=== PATIENT | female | born 1995 | race Caucasian/White ===

== ENCOUNTER 2020-12-30 11:15 | Outpatient (CLI) | payer BC, SELFPAY ==
--- NOTE | 2020-12-30 11:24 | XR_ITS ---
WS: [id number] Cervical spine, 3 views, 12/30/2020 Clinical Data: NECK PAIN Comparison: Cervical spine, 07/15/2015. Findings: No compression fractures are seen. The disc heights are normal. There is no prevertebral so ft tissue swelling. The odontoid is unremarkable. The soft tissues of the neck and the lung apices ar e normal. XR/XR cervical spine 3V* [id number] Impression: Negative cervical spine.
== END 2020-12-30 11:16 | disposition home or self-care (01) ==
LOC: RADWPI 11:23
PROVIDERS: PCP Family Medicine; Visit Provider Chiropractor
DX: M54.2 Cervicalgia (principal)
CPT/HCPCS: 72040

== ENCOUNTER → 2022-09-26 08:26 | Outpatient (BNVA) | payer OTHER, SELFPAY | PROVIDERS: PCP Family Medicine; Visit Provider Family Medicine Adult Medicine | DX: R39.9 Unspecified symptoms and signs involving the genitourinary system (principal) | CPT/HCPCS: 81000 ==

== ENCOUNTER → 2022-10-18 08:40 | Outpatient (BNVA) | payer OTHER, SELFPAY | PROVIDERS: PCP Family Medicine; Visit Provider Nurse Practitioner Women's Health | DX: Z32.00 Encounter for pregnancy test, result unknown (principal); Z34.90 Encounter for supervision of normal pregnancy, unspecified, unspecified trimester; R31.9 Hematuria, unspecified | CPT/HCPCS: 81025; 84315; 87077; 87086; 87184 ==

== ENCOUNTER → 2022-12-04 15:09 | Outpatient (BNVA) | payer OTHER, SELFPAY | PROVIDERS: PCP Family Medicine; Visit Provider Obstetrics & Gynecology | DX: O99.351 Diseases of the nervous system complicating pregnancy, first trimester (principal); G40.909 Epilepsy, unspecified, not intractable, without status epilepticus; Z3A.00 Weeks of gestation of pregnancy not specified | CPT/HCPCS: 80307; 84315; 84443; 85027; 86592; 86762; 86803; 86850; 86900; 87340; 87491; 87591; 87661; 87806; 88175 ==

== ENCOUNTER → 2023-03-21 15:00 | Outpatient (BNVA) | payer OTHER, SELFPAY | PROVIDERS: PCP Family Medicine; Visit Provider Obstetrics & Gynecology | DX: O09.899 Supervision of other high risk pregnancies, unspecified trimester (principal); R82.90 Unspecified abnormal findings in urine; Z3A.28 28 weeks gestation of pregnancy | CPT/HCPCS: 82950; 84315; 85025; 87077; 87086; 87184 ==

== ENCOUNTER → 2023-04-04 13:15 | Outpatient (BNVA) | payer OTHER, SELFPAY | PROVIDERS: PCP Family Medicine; Visit Provider Obstetrics & Gynecology | DX: O09.899 Supervision of other high risk pregnancies, unspecified trimester (principal); Z3A.30 30 weeks gestation of pregnancy | CPT/HCPCS: 84315; 87086 ==

== ENCOUNTER 2023-04-11 12:45 | Outpatient (CLI) | payer OTHER, SELFPAY ==
[2023-04-14 13:44] LABS: Levetiracetam Immunoassy 14.3 mcg/mL (6.0-46.0)
== END 2023-04-11 12:46 | disposition home or self-care (01) ==
PROVIDERS: PCP Family Medicine; Visit Provider Psychiatry & Neurology Neurology
DX: G40.309 Generalized idiopathic epilepsy and epileptic syndromes, not intractable, without status epilepticus (principal)
CPT/HCPCS: 36415; 80177

== ENCOUNTER → 2023-05-02 13:36 | Outpatient (BNVA) | payer OTHER, SELFPAY | PROVIDERS: PCP Family Medicine; Visit Provider Obstetrics & Gynecology | DX: O09.899 Supervision of other high risk pregnancies, unspecified trimester (principal); Z3A.34 34 weeks gestation of pregnancy | CPT/HCPCS: 84315; 85025 ==

== ENCOUNTER → 2023-05-16 13:20 | Outpatient (BNVA) | payer OTHER, SELFPAY | PROVIDERS: PCP Family Medicine; Visit Provider Obstetrics & Gynecology | DX: O09.899 Supervision of other high risk pregnancies, unspecified trimester (principal); Z3A.36 36 weeks gestation of pregnancy | CPT/HCPCS: 84315; 87081 ==

== ENCOUNTER → 2023-05-23 13:08 | Outpatient (BNVA) | payer OTHER, SELFPAY | PROVIDERS: PCP Family Medicine; Visit Provider Obstetrics & Gynecology | DX: O09.899 Supervision of other high risk pregnancies, unspecified trimester (principal); Z3A.37 37 weeks gestation of pregnancy | CPT/HCPCS: 84315; 87086 ==

== ENCOUNTER 2023-06-13 09:57 | Outpatient (CLI) | payer OTHER, SELFPAY ==
[2023-06-13 09:57] VITALS: RESP 17; BMI 31.1
[2023-06-13 10:11] VITALS: BP 144/72; PULSE 83
[2023-06-13 10:26] VITALS: BP 120/72; PULSE 83
[2023-06-13 10:39] VITALS: BP 115/71; PULSE 88
[2023-06-13 10:58] VITALS: BP 115/71; PULSE 88
== END 2023-06-13 10:58 | disposition home or self-care (01) ==
LOC: OPOB 10:04 → OBGYN 10:04
PROVIDERS: PCP Family Medicine; Visit Provider Obstetrics & Gynecology
DX: O48.0 Post-term pregnancy (principal); Z3A.00 Weeks of gestation of pregnancy not specified
CPT/HCPCS: 59025; 84315; 99211

== ENCOUNTER 2023-06-17 13:06 | Outpatient (CLI) | payer OTHER, SELFPAY ==
[2023-06-17 13:13] VITALS: BP 115/66; PULSE 88
--- NOTE | 2023-06-17 13:21 | USR_ITS ---
PROCEDURE INFORMATION: Exam: US Biophysical Profile Without Non-Stress Test Exam date and time: 06/17/2023 2:13 PM Age: 27 years old Clinical indication: Condition or disease; Other: Post dates; TECHNIQUE: Imaging protocol: US biophysical profile without non-stress testing. COMPARISON: US OB >= 14 weeks fetus [facility] 01/24/2023 2:26 PM FINDINGS: Gestation: Single living intrauterine . heart rate: 150 bpm Placenta: Anterior grade 3 placenta, no previa. No abruption. BIOPHYSICAL PROFILE: breathing movement (BPP): 2 out of 2. body movement (BPP): 2 out of 2. tone (BPP): 2 out of 2. Amniotic fluid (BPP): 2 out of 2. MATERNAL ANATOMY: Cervix: Cervical length measures 3.16 cm. Closed. US/US OB BPP wo NST [id number] IMPRESSION: 1. Single living intrauterine . 2. Normal biophysical profile score with 8 out of 8 available points.
[2023-06-17 13:28] VITALS: BP 110/62; PULSE 88
[2023-06-17 13:43] VITALS: BP 102/59; PULSE 88
[2023-06-17 13:58] VITALS: BP 115/70; PULSE 88
[2023-06-17 14:13] VITALS: BP 115/69; PULSE 86
[2023-06-17 14:52] VITALS: BP 115/69; PULSE 86
== END 2023-06-17 15:00 | disposition home or self-care (01) ==
LOC: OPOB 13:06 → OBGYN 13:08
PROVIDERS: PCP Family Medicine; Visit Provider Obstetrics & Gynecology
DX: O48.0 Post-term pregnancy (principal); Z3A.00 Weeks of gestation of pregnancy not specified
CPT/HCPCS: 59025; 76819; 99211

== ENCOUNTER 2023-06-20 19:05 | Inpatient (IN) | payer OTHER, SELFPAY ==
[2023-06-20] VITALS (12 sets, daily range): BP systolic 114–139; BP diastolic 64–88; PULSE 92–108; RESP 16; TEMP 37.1; BMI 31.5
[2023-06-20 20:34] LABS: Basophils % 0.3 %; Eosinophils # 0.1 10^3/uL (0.0-0.8); Eosinophils % 0.6 %; Hematocrit 36.1 % (36-47); Lymphocytes # 2.3 10^3/uL (0.8-4.8); Lymphocytes % 19.2 %; Mean Corpuscular HGB Conc 34.9 g/dL (30-55); Mean Corpuscular Hemoglobin 31.2 pg (27-33); Mean Corpuscular Volume 89.4 fl (85-98); Mean Platelet Volume 11.7 fL (7.4-10.4); Monocytes # 0.8 10^3/uL (0.2-0.9); Monocytes % 6.2 %; Neutrophils # 8.85 10^3/uL (1.8-7.7); Neutrophils % 72.6 %; Nucleated Red Blood Cells % 0 %; Platelet Count 188 10^3/cmm (157-399); Red Blood Count 4.04 10^6/uL (3.85-5.65); Red Cell Distribution Width 13.3 % (12.1-15.1); White Blood Count 12.19 10^3/uL (3.29-11.43)
--- NOTE | 2023-06-20 20:35 | P.HP_ITS ---
Providers/Chief Complaint Admitting Physician: Ulises Johnson MD Primary ORACLE ETL DEVELOPER: Ulises Johnson MD Primary Care Provider: Cheng Uribe Chief Complaint: post date induction HPI ORACLE ETL DEVELOPER History of Present Illness Tosin Guadarrama is a 27 year old female G1 with EDC June 13, 2023 at 41 w 0 d no complications admitted for labor induction due to post-dates Present Details : 1 Para: 0 Labs Rubella: Immune RPR: Results in [employer] GBS: Negative Medications/Allergies Home Medications Medication Instructions Recorded Confirmed Last Taken Type levetiracetam 500 mg 2,000 mg PO DAILY 09/26/22 06/13/23 Unknown History tablet,extended release 24 hr PNV-iron 29 mg-folic acid 1 pkg PO 10/18/22 06/13/23 Unknown History mf-gcwwi-8-dha 200 mg oral combo pack folic acid 0.8 mg capsule 0.8 mg PO DAILY 12/04/22 06/13/23 Unknown History Allergies Allergy/AdvReac Type Severity Reaction Status Date / Time Penicillins Allergy Unknown Verified 06/13/23 08:52 PFSH ORACLE ETL DEVELOPER PFSH: Medical History Dysuria Seizure disorder Family History Denies family history of Colon cancer Pancreatic cancer Ovarian cancer Thyroid cancer Diabetes Breast cancer Cancer Hypertension Uterine cancer Stroke History History History 1 Term 0 0 Miscarriages/Ectopic 0 Living Children 0 Care DARBY Calculator Estimated Delivery Date Method Current WG Current Estimate 06/13/23 LMP (Certain) 41w 1d Vitals/I&O/Wt Last Vital Signs Temp 97.2 F L 06/21/23 06:24 Pulse 82 06/21/23 07:10 Resp 16 06/21/23 02:38 BP 117/70 06/21/23 07:10 Pulse Ox 99 06/21/23 06:13 O2 Del Method Room Air 06/21/23 03:29 Weight last 48 hrs Weight 178 lb Physical Exam Const: COMMON NORMALS: no acute distress, average body habitus, patient oriented x3, healthy appearing and alert Resp: COMMON NORMALS: normal respiratory effort, No retractions and clear to auscultation bilaterally Cardio: COMMON NORMALS: regular rate and regular rhythm GI: COMMON NORMALS: Normal to inspection, nondistended, normoactive bowel sounds present, Soft to palpation and non-tender : OTHER: Cervix: FT / 25% / -4 / posterior / cephalic Extremity: COMMON NORMALS: normal to inspection and no pedal edema Urinary Catheter Management: Bustillos: Cath Placed During This Visit: yes Reason for Continuing Indwelling Catheter: Accurate Measurement of Urinary Output in Critically Ill Patients Urinary Catheter Date of Insertion: 06/21/23 Urinary Catheter Time of Insertion: 06:15 Data 06/20/23 20:08 Other Labs: GBS negative A&P Assessment and plan (1) Post-dates : 41 w 0 d admit for labor induction plan cytotec 25 ug intravaginal Attestations Medical Necessity Statement*: patient at 41 weeks, admitted for labor induction Coding Level of Care Code Acute Code for Chg Fwd Diagnoses Post-dates O48.0 Time Spent (min) 30
[2023-06-20] MEDS: miSOPROStol 100 mcg tablet 25 MCG VAGINAL (21:03)
[2023-06-21] VITALS (90 sets, daily range): BP systolic 100–152; BP diastolic 55–99; PULSE 76–121; RESP 16–97; TEMP 36–36.8; O2SAT 92–99
[2023-06-21] MEDS: miSOPROStol 100 mcg tablet 25 MCG VAGINAL (01:19)
[2023-06-21] MEDS: fentaNYL 50 mcg/mL INJ 2mL IVP (02:38)
[2023-06-21] MEDS: acetaminophen 325 mg Tablet 650 MG PO (02:41)
[2023-06-21] MEDS: lactated ringers 1,000 ML 999 ML IV (03:31)
[2023-06-21] MEDS: dextrose 5%-lactated ringers 1,000 ML 125 ML IV ×2 (05:10→08:26)
--- NOTE | 2023-06-21 05:39 | ANES.PREANE2 ---
Pre-Anesthetic Assessment Height/Weight: Height 1.6 m Weight 80.739 kg Temp Pulse Resp BP Pulse Ox O2 Del Method 98.8 F 108 H 16 128/64 98 Room Air 06/20/23 20:15 06/21/23 05:33 06/21/23 02:38 06/21/23 05:26 06/21/23 05:33 06/21/23 03:29 Preop Diagnosis: Labor pain epidural Familial anesthetic complications: none Was Beta Malathi taken within 24 hours: N/A Was Clonidine taken within 24 hours: N/A Social No alcohol and No tobacco Exam alert, oriented x 3, clear to auscultation bilaterally and regular rate & rhythm Airway Submandibular: within normal limits Cervical ROM: within normal limits Mallampati: Class II Dentition: full Pulmonary None reported CV/HEM None reported None reported Hepatic None reported GI Gastroesophageal Reflux Disease Metabolic None reported Musc/skel None reported Neuropsych Seizure Anesthetic Plan ASA status: 2 Anesthesia: Regional (specify below) Risk of > 500 ml blood loss (7ml/kg in children): No Medications/Allergies Home Medications Medication Instructions Recorded Confirmed Last Taken Type levetiracetam 500 mg 2,000 mg PO DAILY 09/26/22 06/13/23 Unknown History tablet,extended release 24 hr PNV-iron 29 mg-folic acid 1 pkg PO 10/18/22 06/13/23 Unknown History va-ampzq-7-dha 200 mg oral combo pack folic acid 0.8 mg capsule 0.8 mg PO DAILY 12/04/22 06/13/23 Unknown History Allergies Allergy/AdvReac Type Severity Reaction Status Date / Time Penicillins Allergy Unknown Verified 06/13/23 08:52 Current Medications Generic Name Dose Route Start Last Admin Trade Name Freq PRN Reason Stop Dose Admin Acetaminophen 650 mg 06/20/23 20:15 06/21/23 02:41 Acetaminophen 325 Mg Tablet PO 650 mg Q6H PRN Administration Mild pain or temp > 100.4 Fentanyl 25 - 100 mcg 06/20/23 20:15 06/21/23 02:38 Fentanyl 50 Mcg/Ml Inj 2ml IVP 25 mcg Q1H PRN Administration SEVERE PAIN Dextrose/Lactated Ringer's 1,000 mls @ 125 mls/hr 06/20/23 20:15 06/21/23 05:10 Dextrose 5%-Lactated Ringers IV 125 mls/hr .Q8H MARIELENA Administration Lactated Ringer's 1,000 mls @ 999 mls/hr 06/21/23 03:18 06/21/23 03:31 Lactated Ringers IV 999 mls/hr .Q1H1M PRN Administration See label comments PFSH Anesthesia Medical History Dysuria Seizure disorder Family History Denies family history of Colon cancer Pancreatic cancer Ovarian cancer Thyroid cancer Diabetes Breast cancer Cancer Hypertension Uterine cancer Stroke Female Reproductive History : 1 Data Anesthesia 06/20/23 20:08 Short CBC 06/20/23 Range/Units 20:08 WBC 12.19 H (3.29-11.43) 10^3/uL Hgb 12.60 (11.27-16.99) g/dL Hct 36.1 (36-47) % MCV 89.4 (85-98) fl Plt Count 188 (157-399) 10^3/cmm Neut % (Auto) 72.6 % Neut # (Auto) 8.85 H (1.8-7.7) 10^3/uL Cardiac Studies: No Data to Display
--- NOTE | 2023-06-21 06:05 | P.ANES_ITS ---
Anesthesia Procedures Procedure/Date: 06/21/23 epidural Procedure Narrative: epidural complete, bolus given, epidural pump initiated with AIRCRAFT ENGINE MECHANIC OVERHAUL education given, vitals taken during procedure and satisfactory throughout, patient admits to decrease pain, report of procedure to OB RN Epidural: Time Out Performed: Yes Consents Signed: Procedure Consent Consent: requested by attending/covering physician, from patient, risks and benefits reviewed and patient agrees to proceed Lumbar Level: L3-L4 Epidural position: sitting Epidural procedure: sterile prep of area, 1% lidocaine to numb the area (3 mL), 18 g needle, negative for paresthesia passed, neg for paresthesia, test dose given, 1.5% xylocaine 1:200k epi (5 mL), 0.2% Ropivacaine bolus ml (5 mL), placed PCEA, no systemic response, sterile dressing applied, L.U.D. no apparent complications and 0.2% Ropiavacaine @ mls/hr (13 mL/hr)
[2023-06-21] MEDS: ROPivacaine syringe 100 MG/50 ML SYRINGE 13 MG EPIDURAL ×2 (06:22→08:25)
--- NOTE | 2023-06-21 07:23 | PM.OBGYPN ---
SHIP YARD ELECTRICAL PERSON Subjective Subjective: Interval history: patient comfortable with epidural fetus reassuring received cytotec 25 ug intravaginal x two doses UCs 3-4 q 10 minutes Cx: 5-6 cm progressing well continue expectant management Labor: Station: -2 Amniotic Membrane Status: Ruptured Monitor Mode: External Contraction Pattern: Regular Vitals/I&O/Wt Last Vital Signs Temp 97.2 F L 06/21/23 06:24 Pulse 82 06/21/23 07:10 Resp 16 06/21/23 02:38 BP 117/70 06/21/23 07:10 Pulse Ox 99 06/21/23 06:13 O2 Del Method Room Air 06/21/23 03:29 Weight last 48 hrs Weight 178 lb Physical Exam Urinary Catheter Management: Bustillos: Cath Placed During This Visit: yes Reason for Continuing Indwelling Catheter: Accurate Measurement of Urinary Output in Critically Ill Patients Urinary Catheter Date of Insertion: 06/21/23 Urinary Catheter Time of Insertion: 06:15 Data 06/20/23 20:08 A&P Assessment and plan (1) Post-dates : patient progressing well continue expectant management Attestations Medical Necessity Statement*: patient at 41 weeks, admitted for labor induction Coding Level of Care Code Acute Code for Chg Fwd Diagnoses Post-dates O48.0 Time Spent (min) 15
[2023-06-21] MEDS: ondansetron 2 mg/ML SDV 2 mL 4 MG IVP (09:24)
--- NOTE | 2023-06-21 09:30 | PM.OBGYPN ---
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 MARKETING Subjective Subjective: Interval history: Fetus reassuring Comfortable with epidural Cervix: anterior lip / -1 station Labor: Station: +3 Amniotic Membrane Status: Ruptured Monitor Mode: External Contraction Pattern: Regular Vitals/I&O/Wt Last Vital Signs Temp 97.6 F 06/22/23 15:40 Pulse 93 06/22/23 15:40 Resp 16 06/22/23 15:40 BP 107/74 06/22/23 15:40 Pulse Ox 97 06/22/23 15:40 O2 Del Method Room Air 06/22/23 15:40 Physical Exam Urinary Catheter Management: Bustillos: Cath Placed During This Visit: yes, but has since been removed by the nurse Reason for Continuing Indwelling Catheter: Decision to DC Catheter Urinary Catheter Date of Insertion: 06/21/23 Urinary Catheter Time of Insertion: 06:15 Date Urinary Catheter Removed: 06/21/23 Time Urinary Catheter Discontinued: 10:30 Data 06/21/23 23:35 A&P Assessment and plan (1) Encounter for induction of labor: 41 w 1 d undergoing labor induction normal labor progress Attestations Medical Necessity Statement*: patient at 41 w 1 d, admitted for labor induction Coding Level of Care Code Acute Code for Chg Fwd Diagnoses Encounter for induction of labor Z34.90 Time Spent (min) 10
--- NOTE | 2023-06-21 11:10 | PM.DELIVERY ---
Delivery Note: Date of delivery: June 23, 2023 Pre-delivery diagnoses: 41 weeks labor induction Post-delivery diagnoses: same, delivered Procedure: Vaginal delivery Op report anesthesia: Epidural Delivering Physician: Ulises Johnson MD Estimated blood loss (mL): 300 Findings: vigorous female infant 2-3+ meconium at delivery normal placenta and cord cord gases and blood obtained no episiotomy second-degree perineal laceration repaired EBL: 300 cc no complications Pre-Delivery Course: normal labor course Delivery: vaginal delivery Post-Delivery Status: good History History History 1 Term 0 0 Miscarriages/Ectopic 0 Living Children 0 A&P Assessment and plan (1) Encounter for induction of labor: (2) Vaginal delivery: care Coding Level of Care Code Acute Code for Chg Fwd Diagnoses Encounter for induction of labor Z34.90 Vaginal delivery O80 Time Spent (min) 60
[2023-06-21] MEDS: benzocaine-menthol 78 gm Canister 1 SPRAY TOPICAL (14:27)
[2023-06-21] MEDS: ibuprofen 800 mg tablet PO ×2 (14:28→21:32)
[2023-06-21] MEDS: lanolin oint 7 gm 1 APPLIC TOPICAL (14:28)
[2023-06-21] MEDS: docusate sodium 100 mg Capsule PO (17:26)
[2023-06-22 00:06] LABS: Hematocrit 33.3 % (36-47); Mean Corpuscular HGB Conc 34.8 g/dL (30-55); Mean Corpuscular Hemoglobin 31.6 pg (27-33); Mean Corpuscular Volume 90.7 fl (85-98); Mean Platelet Volume 11.5 fL (7.4-10.4); Platelet Count 157 10^3/cmm (157-399); Red Blood Count 3.67 10^6/uL (3.85-5.65); Red Cell Distribution Width 13.5 % (12.1-15.1)
[2023-06-22 05:10] VITALS: BP 108/74; PULSE 79; RESP 16; TEMP 36.8
--- NOTE | 2023-06-22 08:38 | ANE.PACU2 ---
Inpatient post-anesthesia follow up: Airway intact: Yes Vital signs: Temperature 97.6 F Pulse Rate 93 Respiratory Rate 16 Blood Pressure 107/74 Pulse Oximetry 97 Oxygen Delivery Me thod Room Air Oxygen Flow Rate Fraction of Inspir ed Oxygen Hydration adequate: Yes Nausea and vomiting: No Pain level: 1 Mental status: Baseline
[2023-06-22] MEDS: docusate sodium 100 mg Capsule PO (09:09)
[2023-06-22] MEDS: ibuprofen 800 mg tablet PO ×2 (09:09→15:23)
[2023-06-22] MEDS: prenatal vitamin Capsule 1 CAP PO (09:09)
[2023-06-22 09:14] VITALS: BP 107/70; PULSE 103; RESP 15; O2SAT 96
--- NOTE | 2023-06-22 13:10 | P.PN_ITS ---
EMERGENCY VEHICLE DISPATCHER Subjective Subjective: Interval history: no c/o no bleeding, pain eating, voiding, ambulating well caring for without any problems Labor: Station: +3 Amniotic Membrane Status: Ruptured Monitor Mode: External Contraction Pattern: Regular Vitals/I&O/Wt Last Vital Signs Temp 97.6 F 06/22/23 15:40 Pulse 93 06/22/23 15:40 Resp 16 06/22/23 15:40 BP 107/74 06/22/23 15:40 Pulse Ox 97 06/22/23 15:40 O2 Del Method Room Air 06/22/23 15:40 Physical Exam Const: COMMON NORMALS: no acute distress, patient oriented x3 and alert Resp: COMMON NORMALS: normal respiratory effort and clear to auscultation bilaterally AUSCULTATION: clear to auscultation bilaterally Cardio: COMMON NORMALS: regular rate and regular rhythm RATE: regular rate RHYTHM: regular rhythm GI: COMMON NORMALS: Normal to inspection, nondistended, normoactive bowel sounds present, Soft to palpation and non-tender PALPATION: Yes Soft to palpation OTHER: fundus firm Neuro: COMMON NORMALS: patient oriented x3 SENSORIUM/ORIENTATION: Yes alert Urinary Catheter Management: Bustillos: Cath Placed During This Visit: yes, but has since been removed by the nurse Reason for Continuing Indwelling Catheter: Decision to DC Catheter Urinary Catheter Date of Insertion: 06/21/23 Urinary Catheter Time of Insertion: 06:15 Date Urinary Catheter Removed: 06/21/23 Time Urinary Catheter Discontinued: 10:30 Data 06/21/23 23:35 A&P Assessment and plan (1) Vaginal delivery: doing well discharge home today instructions and precautions given call/return if fever, chills, headache, blurry vision, nausea, vomiting, abdominal pain; vaginal bleeding or discharge; shortness of breath, chest pain, leg pains or swelling; inability to void, perineal pain or swelling; feelings of depression or mood changes; thoughts of suicide or harming others; inability to care for baby. f/u in 6 weeks or PRN Attestations Medical Necessity Statement*: patient s/p vaginal delivery, day 1 Coding Level of Care Code Acute Code for Chg Fwd Diagnoses Vaginal delivery O80 Time Spent (min) 30
--- NOTE | 2023-06-22 14:05 | PM.OBGYDC ---
Discharge Providers CURRICULUM ASSISTANT PRINCIPAL Date of Admission: 06/20/23 19:05 Date of Discharge: 06/22/23 Attending Provider at Admission: Ulises Johnson MD Attending Provider at Discharge: Ulises Johnson MD Primary CURRICULUM ASSISTANT PRINCIPAL: Ulises Johnson MD Primary Care Provider: Cheng Uribe Diagnoses at Discharge Discharge Diagnosis (1) Vaginal delivery: Details from hospital stay: patient s/p patient did well without any complications Status: Acute Reason for Visit Reason for Visit: post date induction Hospital Course Hospital Course patient was admitted for induction of labor at 41 weeks progressed to complete vaginal delivery without any complications routine care Information Peripartum Data: Infant Delivery Method: Vaginal Physical Exam Const: COMMON NORMALS: no acute distress, patient oriented x3 and alert Resp: COMMON NORMALS: normal respiratory effort and clear to auscultation bilaterally AUSCULTATION: clear to auscultation bilaterally Cardio: COMMON NORMALS: regular rate and regular rhythm RATE: regular rate RHYTHM: regular rhythm GI: COMMON NORMALS: Normal to inspection, nondistended, normoactive bowel sounds present, Soft to palpation and non-tender PALPATION: Yes Soft to palpation Extremity: COMMON NORMALS: normal to inspection, no clubbing, cyanosis or edema and no calf tenderness Neuro: COMMON NORMALS: patient oriented x3 SENSORIUM/ORIENTATION: Yes alert Urinary Catheter Management: Bustillos: Cath Placed During This Visit: yes, but has since been removed by the nurse Reason for Continuing Indwelling Catheter: Decision to DC Catheter Urinary Catheter Date of Insertion: 06/21/23 Urinary Catheter Time of Insertion: 06:15 Date Urinary Catheter Removed: 06/21/23 Time Urinary Catheter Discontinued: 10:30 History History History 1 Term 0 0 Miscarriages/Ectopic 0 Living Children 0 Discharge Data Studies Completed and Pending Laboratory Results WBC 17.00 10^3/uL (3.29-11.43) H 06/21/23 23:35 RBC 3.67 10^6/uL (3.85-5.65) L 06/21/23 23:35 Hgb 11.60 g/dL (11.27-16.99) 06/21/23 23:35 Hct 33.3 % (36-47) L 06/21/23 23:35 MCV 90.7 fl (85-98) 06/21/23 23:35 MCH 31.6 pg (27-33) 06/21/23 23:35 MCHC 34.8 g/dL (30-55) 06/21/23 23:35 RDW 13.5 % (12.1-15.1) 06/21/23 23:35 Plt Count 157 10^3/cmm (157-399) 06/21/23 23:35 MPV 11.5 fL (7.4-10.4) H 06/21/23 23:35 Neut % (Auto) 72.6 % 06/20/23 20:08 Lymph % (Auto) 19.2 % 06/20/23 20:08 [place] % (Auto) 6.2 % 06/20/23 20:08 Eos % (Auto) 0.6 % 06/20/23 20:08 Baso % (Auto) 0.3 % 06/20/23 20:08 Neut # (Auto) 8.85 10^3/uL (1.8-7.7) H 06/20/23 20:08 Lymph # (Auto) 2.3 10^3/uL (0.8-4.8) 06/20/23 20:08 [place] # (Auto) 0.8 10^3/uL (0.2-0.9) 06/20/23 20:08 Eos # (Auto) 0.1 10^3/uL (0.0-0.8) 06/20/23 20:08 Baso # (Auto) 0.0 10^3/uL (0.0-0.1) 06/20/23 20:08 Nucleated RBC % (auto) 0 % 06/20/23 20:08 Nucleated RBCs # 0.0 /100WBC 06/20/23 20:08 Procedures Performed vaginal delivery second-degree perineal laceration repaired Vitals Last Vital Signs Temp 97.6 F 06/22/23 15:40 Pulse 93 06/22/23 15:40 Resp 16 06/22/23 15:40 BP 107/74 06/22/23 15:40 Pulse Ox 97 06/22/23 15:40 O2 Del Method Room Air 06/22/23 15:40 Discharge Plan Discharge Patient Disposition: Home Condition: Stable Prescriptions: Continued levetiracetam 500 mg tablet extended release 24 hr 2,000 mg PO DAILY PNV cmb 21-texp-VD-omega-3-dha [id number] mg combo pack PO folic acid 0.8 mg capsule 0.8 mg PO DAILY Discharge Orders: Discharge Order (Routine); Ordered 06/22/23 Ordered By: Ulises Johnson Referrals: Ulises Johnson MD [Physician] - 08/01/23 8:45 am (Patient to see Dr. Johnson for 6 week follow up on August 01 @ 8:45) Discharge Diet: Usual diet Discharge Activity: Increase activity as tolerated Patient Instructions: Depression (DC), Preeclampsia and Eclampsia After Delivery (GEN), Hemorrhage (DC), OB Discharge Report, OB Food/Drug Interaction Guide, OB Care at Home, Opioid Safety, OB Home Care, Abnormal Bleeding Activity Restrictions/Additional Instructions: call Dr. Johnson at [phone] if problems Discharge Attestations CURRICULUM ASSISTANT PRINCIPAL Time Spent in Discharge Care*: less than 30 min Coding Level of Care Code Acute Code for Chg Fwd Diagnoses Vaginal delivery O80 Time Spent (min) 20
[2023-06-22 15:40] VITALS: BP 107/74; PULSE 93; RESP 16; TEMP 36.4; O2SAT 97
== END 2023-06-22 16:00 | disposition home or self-care (01) | DRG 807 ==
PROVIDERS: Admitting Provider Obstetrics & Gynecology; PCP Family Medicine; Visit Provider Obstetrics & Gynecology
DX: O48.0 Post-term pregnancy (principal); Z37.0 Single live birth; Z3A.41 41 weeks gestation of pregnancy; O70.1 Second degree perineal laceration during delivery; O77.0 Labor and delivery complicated by meconium in amniotic fluid
CPT/HCPCS: 36415; 51702; 59025; 59409; 85025; 85027; 96374; 98960; 99211; G0379; J2405; J2795; J3010; J7120; J7121

== ENCOUNTER → 2024-04-16 15:22 | Outpatient (BNVA) | payer OTHER, SELFPAY | PROVIDERS: PCP Family Medicine; Visit Provider Obstetrics & Gynecology | DX: Z01.419 Encounter for gynecological examination (general) (routine) without abnormal findings (principal) | CPT/HCPCS: 87624 ==

== ENCOUNTER → 2024-12-16 07:30 | Outpatient (BNVA) | payer OTHER, SELFPAY | PROVIDERS: PCP Family Medicine; Visit Provider Nurse Practitioner Women's Health | DX: Z32.01 Encounter for pregnancy test, result positive (principal) | CPT/HCPCS: 81025; 84702; 86850; 86900 ==

== ENCOUNTER → 2024-12-25 15:21 | Outpatient (BNVA) | payer OTHER, SELFPAY | PROVIDERS: PCP Family Medicine; Visit Provider Nurse Practitioner Women's Health | DX: Z34.91 Encounter for supervision of normal pregnancy, unspecified, first trimester (principal) | CPT/HCPCS: 76801 ==

== ENCOUNTER → 2025-01-14 14:33 | Outpatient (BNVA) | payer OTHER, SELFPAY | PROVIDERS: PCP Family Medicine; Visit Provider Nurse Practitioner Women's Health | DX: O09.899 Supervision of other high risk pregnancies, unspecified trimester (principal) | CPT/HCPCS: 80307; 84443; 85025; 86592; 86762; 86803; 86850; 86900; 87086; 87340; 87491; 87591; 87661; 87806 ==

== ENCOUNTER → 2025-01-21 15:37 | Outpatient (BNVA) | payer OTHER, SELFPAY | PROVIDERS: PCP Family Medicine; Visit Provider Nurse Practitioner Women's Health | DX: Z34.90 Encounter for supervision of normal pregnancy, unspecified, unspecified trimester (principal) | CPT/HCPCS: 76801 ==

== ENCOUNTER → 2025-02-16 10:25 | Outpatient (BNVA) | payer OTHER, SELFPAY | PROVIDERS: PCP Family Medicine; Visit Provider Obstetrics & Gynecology | DX: Z34.90 Encounter for supervision of normal pregnancy, unspecified, unspecified trimester (principal) | CPT/HCPCS: 84315 ==

== ENCOUNTER → 2025-02-23 13:56 | Outpatient (BNVA) | payer OTHER, SELFPAY | PROVIDERS: PCP Family Medicine; Visit Provider Nurse Practitioner Women's Health | DX: Z34.90 Encounter for supervision of normal pregnancy, unspecified, unspecified trimester (principal); G40.909 Epilepsy, unspecified, not intractable, without status epilepticus | CPT/HCPCS: 84315 ==

== ENCOUNTER → 2025-03-23 14:32 | Outpatient (BNVA) | payer OTHER, SELFPAY | PROVIDERS: PCP Family Medicine; Visit Provider Obstetrics & Gynecology | DX: Z36.9 Encounter for antenatal screening, unspecified (principal) | CPT/HCPCS: 76805 ==

== ENCOUNTER → 2025-03-30 15:42 | Outpatient (BNVA) | payer OTHER, SELFPAY | PROVIDERS: PCP Family Medicine; Visit Provider Obstetrics & Gynecology | DX: Z34.90 Encounter for supervision of normal pregnancy, unspecified, unspecified trimester (principal) | CPT/HCPCS: 84315 ==

== ENCOUNTER → 2025-04-20 14:10 | Outpatient (BNVA) | payer SELFPAY | PROVIDERS: PCP Family Medicine; Visit Provider Nurse Practitioner Women's Health | DX: Z34.90 Encounter for supervision of normal pregnancy, unspecified, unspecified trimester (principal) | CPT/HCPCS: 84315; 87077; 87086; 87184 ==

== ENCOUNTER → 2025-05-18 13:57 | Outpatient (BNVA) | payer BC, SELFPAY | PROVIDERS: PCP Family Medicine; Visit Provider Obstetrics & Gynecology | DX: Z34.90 Encounter for supervision of normal pregnancy, unspecified, unspecified trimester (principal) | CPT/HCPCS: 82950; 84315; 85025 ==

== ENCOUNTER → 2025-06-01 14:09 | Outpatient (BNVA) | payer BC, SELFPAY | PROVIDERS: PCP Family Medicine; Visit Provider Obstetrics & Gynecology | DX: Z34.90 Encounter for supervision of normal pregnancy, unspecified, unspecified trimester (principal) | CPT/HCPCS: 84315 ==

== ENCOUNTER → 2025-06-16 13:32 | Outpatient (BNVA) | payer BC, SELFPAY | PROVIDERS: PCP Family Medicine; Visit Provider Nurse Practitioner Women's Health | DX: Z34.90 Encounter for supervision of normal pregnancy, unspecified, unspecified trimester (principal) | CPT/HCPCS: 84315 ==

== ENCOUNTER 2025-06-29 13:36 | Outpatient (CLI) | payer BC, SELFPAY ==
--- NOTE | 2025-06-29 13:45 | USR_ITS ---
PROCEDURE INFORMATION: Exam: US , Follow up Exam date and time: 06/29/2025 2:17 PM Age: 29 years old Clinical indication: Screening exam; Routine US, uterus; Additional info: Z34.90 - encounter for supervision of normal , u. . . LABS AND CLINICAL REPORTS: Gestational age (Established): 34 w 3 d Estimated due date (Established): 08/07/2025 TECHNIQUE: Imaging protocol: Transabdominal ultrasound of the uterus, real time with image documentation. Follow-up (eg, re-evaluation of size by measuring standard growth parameters and amniotic fluid volume, re-evaluation of organ system(s) suspected or confirmed to be abnormal on a previous scan). COMPARISON: US OB >= 14 weeks fetus [id number] 03/23/2025 2:38 PM FINDINGS: Gestation: Single viable IUP in cephalic presentation. Placenta is located anteriorly within the fundus. No hemorrhage noted. Gestational age is 35 weeks 5 days with an DARBY of 07/29/2025. heart rate: 148 bpm Amniotic fluid index: MÓNICA is 15.97 cm. BIOMETRY: Estimated weight: 2801.37 g. EFW by AC, BPD, FL, HC, [place] 1985 85th percentile Biparietal diameter (BPD): 8.76 cm. EGA (BPD) is 35 w 3 d. 76.2 % percentile Head circumference (HC): 31.72 cm. EGA (HC) is 35 w 5 d. 45.6 % percentile Abdominal circumference (AC): 32.41 cm. EGA (AC) is 36 w 2 d. 94.2 % percentile Femur length (FL): 6.9 cm. EGA (FL) is 35 w 3 d. 67.9 % percentile HC/AC: 0.98. (Normal range: 0.93 - 1.09) FL/HC: 21.75. (Normal range: 20.1 - 22.16) FL/BPD: 78.77. (Normal range: 71 - 87) FL/AC: 21.29. (Normal range: 20 - 24) MATERNAL: Cervix: Cervical length measures 6.6 cm. US/[place] [id number] IMPRESSION: Unremarkable viable IUP at 35 weeks 5 days
== END 2025-06-29 13:37 | disposition home or self-care (01) ==
LOC: RAD 13:46
PROVIDERS: PCP Family Medicine; Visit Provider Obstetrics & Gynecology
DX: Z34.90 Encounter for supervision of normal pregnancy, unspecified, unspecified trimester (principal)
CPT/HCPCS: 76816

== ENCOUNTER → 2025-07-02 15:27 | Outpatient (BNVA) | payer BC, SELFPAY | PROVIDERS: PCP Family Medicine; Visit Provider Obstetrics & Gynecology | DX: Z34.90 Encounter for supervision of normal pregnancy, unspecified, unspecified trimester (principal) | CPT/HCPCS: 84315 ==

== ENCOUNTER → 2025-07-06 08:04 | Outpatient (BNVA) | payer BC, SELFPAY | PROVIDERS: PCP Family Medicine; Visit Provider Nurse Practitioner Women's Health | DX: Z34.90 Encounter for supervision of normal pregnancy, unspecified, unspecified trimester (principal) | CPT/HCPCS: 84315 ==

== ENCOUNTER → 2025-07-15 16:14 | Outpatient (BNVA) | payer BC, SELFPAY | PROVIDERS: PCP Family Medicine; Visit Provider Obstetrics & Gynecology | DX: Z34.90 Encounter for supervision of normal pregnancy, unspecified, unspecified trimester (principal) | CPT/HCPCS: 84315; 87081 ==

== ENCOUNTER → 2025-07-20 15:18 | Outpatient (BNVA) | payer BC, SELFPAY | PROVIDERS: PCP Family Medicine; Visit Provider Obstetrics & Gynecology | DX: Z34.90 Encounter for supervision of normal pregnancy, unspecified, unspecified trimester (principal) | CPT/HCPCS: 84315 ==

== ENCOUNTER → 2025-07-27 15:15 | Outpatient (BNVA) | payer BC, SELFPAY | PROVIDERS: PCP Family Medicine; Visit Provider Obstetrics & Gynecology | DX: Z34.90 Encounter for supervision of normal pregnancy, unspecified, unspecified trimester (principal) | CPT/HCPCS: 84315 ==

== ENCOUNTER 2025-08-01 19:08 | Inpatient (IN) | payer BC, SELFPAY ==
[2025-08-01] VITALS (10 sets, daily range): BP systolic 103–138; BP diastolic 59–77; PULSE 91–118; RESP 16; TEMP 36.7; O2SAT 98–99; BMI 32.9
--- NOTE | 2025-08-01 19:45 | PM.OBGYHP ---
Providers/Chief Complaint Admitting Physician: Ulises Johnson MD Primary AUTOMATED CUTTING MACHINE OPERATOR: Ulises Johnson MD Primary Care Provider: Cheng Uribe Chief Complaint: elective induction HPI AUTOMATED CUTTING MACHINE OPERATOR History of Present Illness Tosin Guadarrama is a 29 year old female EDC August 07, 2025 At 39 w 2 d No complications Admitted for elective induction of labor No c/o + active movements Present Details : 2 Para: 1 Labs Rubella: Non-Immune RPR: Negative GBS: Negative Medications/Allergies Home Medications ?Medication ?Instructions ?Recorded ?Confirmed ?Last Taken ?Type levetiracetam 500 mg 2,000 mg PO DAILY 09/26/22 08/02/25 08/01/25 19:00 History tablet,extended release 24 hr docosahexaenoic acid 200 mg 1 mg PO DAILY 02/23/25 08/02/25 08/01/25 19:00 History capsule ( DHA) folic acid 1 mg tablet 1 mg PO DAILY 04/20/25 08/02/25 08/01/25 19:00 History omeprazole 40 mg capsule,delayed 40 mg PO DAILY #30 caps 06/01/25 08/02/25 Unknown Rx release hydrocodone 5 mg-acetaminophen 325 1 tab PO Q6H PRN Moderate To 08/03/25 Unknown Rx mg tablet Severe Pain #15 tabs Allergies Allergy/AdvReac Type Severity Reaction Status Date / Time Penicillins Allergy Unknown Verified 08/01/25 19:18 PFSH AUTOMATED CUTTING MACHINE OPERATOR PFSH: Medical History Seizure disorder Dysuria Family History Denies family history of Colon cancer Pancreatic cancer Ovarian cancer Thyroid cancer Diabetes Breast cancer Cancer Hypertension Uterine cancer Stroke Social History Smoking and tobacco/nicotine status: never used tobacco/nicotine History History History 2 Term 1 0 Miscarriages/Ectopic 0 Living Children 1 Past Pregnancies Del. Date GA/Weeks Outcome Route Wt Inf Gender Labor Lgth Comp. Anesthesia Location 06/21/23 41 live - full term Vaginal 8 lb 4 oz Female [facility] Delivery Date: 06/21/23 Last Updated by: MIGEUL Forrester Dr. Care DARBY Calculator Estimated Delivery Date Method Current WG Current Estimate 08/07/25 LMP (Certain) 39w 3d Other Estimates 08/04/25 Ultrasound #1 39w 6d Specific Issues/Plans SEIZURE DISORDER: takes levetiracetam ER 2000 mg daily, last seizure was in 2016 NAUSEA AND VOMITING IN : doing much better Vitals/I&O/Wt Last Vital Signs Temp 98.3 F 08/03/25 04:37 Pulse 85 08/03/25 04:37 Resp 16 08/03/25 04:37 BP 103/64 08/03/25 04:37 Pulse Ox 97 08/03/25 04:37 O2 Del Method Room Air 08/03/25 04:37 Weight last 48 hrs Weight 186 lb Physical Exam Narrative: Weight 183 lbs; 5?3? VS normal General awake, alert, appropriate Lungs: clear Cor: RRR FH 37 cm, cephalic Cervix: 1 cm / 50 / -3 FHTs normal Cervix: long / closed / high Ext: no edema External monitor: heart tracing good variability, + accelerations Urinary Catheter Management: Bustillos Latex: Cath Placed During This Visit: yes Reason for Continuing Indwelling Catheter: Required Immobilization for Trauma or Surgery or Anesthesia Urinary Catheter Date of Insertion: 08/02/25 Urinary Catheter Time of Insertion: 00:45 Data 08/02/25 18:45 Results Labs OB ([facility]): Obstetrics US 06/29/25 Blood Type AB Positive 08/01/25 Antibody Screen Negative 08/01/25 Hct, (36-47) 33.0 % L 08/02/25 Hgb, (11.27-16.99) 11.20 g/dL L 08/02/25 Rho(D) Type Rh positive 08/01/25 Plt Count, (157-399) 167 10^3/cmm 08/02/25 Hep Bs Antigen, (Nonreactive) Non-reactive 01/14/25 Hepatitis C Antibody, (Nonreactive) Non-reactive 01/14/25 Rubella IgG Antibody, (0.0-10.0) 4.3 IU/mL 01/14/25 RPR, (Nonreactive) Nonreactive 01/14/25 HIV 1&2 Ab & HIV 1 Ag, (Non-Reactiv) Non-reactive 01/14/25 TSH, (0.27-4.20) 0.97 uIU/mL 01/14/25 Glucose 1 Hr 50 gm, (85-140) 128 mg/dL 05/18/25 Ser , Semi-Qnt 97149.00 mIU/mL 12/16/24 HCG, Qual, (Negative) Positive H 12/16/24 Urine Opiates Screen, (Negative) Negative ng/mL 01/14/25 Ur Barbiturates Screen, (Negative) Negative ng/mL 01/14/25 Ur Phencyclidine Scrn, (Negative) Negative ng/mL 01/14/25 Ur Amphetamines Screen, (Negative) Negative ng/mL 01/14/25 U Benzodiazepines Scrn, (Negative) Negative ng/mL 01/14/25 Urine Cocaine Screen, (Negative) Negative ng/mL 01/14/25 U Marijuana (THC) Screen, (Negative) Negative ng/mL 01/14/25 Micro Urine Specimen 04/20/25 Pap Smear Interpret See note 04/16/24 A&P Assessment and plan 1. : 39 w 2 d Admitted for elective induction of labor Fetus reassuring Plan Pitocin per protocol h/o x one PDMP PDMP Reviewed: Not Reviewed Attestations Medical Necessity Statement*: patient at 39 w 2 d, admitted for induction of labor Coding Level of Care Code Acute Code for Chg Fwd Diagnoses Z34.90
[2025-08-01 19:50] LABS: Hematocrit 35.4 % (36-47); Hemoglobin 12.20 g/dL (11.27-16.99); Mean Corpuscular HGB Conc 34.5 g/dL (30-55); Mean Corpuscular Hemoglobin 30.6 pg (27-33); Mean Corpuscular Volume 88.7 fl (85-98); Nucleated Red Blood Cells % 0 %; Platelet Count 178 10^3/cmm (157-399); Red Blood Count 3.99 10^6/uL (3.85-5.65); White Blood Count 12.31 10^3/uL (3.29-11.43)
[2025-08-01] MEDS: oxytocin 30 UNIT/500 ML BAG IV (20:30)
[2025-08-02] VITALS (56 sets, daily range): BP systolic 95–136; BP diastolic 50–89; PULSE 64–134; RESP 14–18; TEMP 36.6–37; O2SAT 95–98
--- NOTE | 2025-08-02 00:07 | ANES.PREANE2 ---
Pre-Anesthetic Assessment Height/Weight: Height 1.6 m Weight 84.368 kg Temp Pulse Resp BP Pulse Ox O2 Del Method 98.0 F 100 16 114/57 98 Room Air 08/01/25 19:19 08/02/25 00:04 08/01/25 19:19 08/02/25 00:04 08/02/25 00:03 08/01/25 19:13 Preop Diagnosis: Labor pain IRENE Was Beta Malathi taken within 24 hours: N/A Was Clonidine taken within 24 hours: N/A Social No alcohol and No tobacco Exam alert, oriented x 3, clear to auscultation bilaterally and regular rate & rhythm Airway Submandibular: within normal limits Cervical ROM: within normal limits Mallampati: Class II Dentition: full History/ROS No significant history except as noted and No significant complaints Pulmonary None reported CV/HEM None reported None reported Hepatic None reported GI None reported Metabolic None reported Musc/skel None reported Neuropsych Seizure Anesthetic Plan ASA status: 2 Anesthesia: Anesthesia Evaluation and Regional (specify below) Other: IRENE Risk of > 500 ml blood loss (7ml/kg in children): No Medications/Allergies Home Medications ?Medication ?Instructions ?Recorded ?Confirmed ?Last Taken ?Type levetiracetam 500 mg 2,000 mg PO DAILY 09/26/22 07/27/25 Unknown History tablet,extended release 24 hr docosahexaenoic acid 200 mg mg PO 02/23/25 07/27/25 Unknown History capsule ( DHA) folic acid 1 mg tablet 1 mg PO DAILY 04/20/25 07/27/25 Unknown History omeprazole 40 mg capsule,delayed 40 mg PO DAILY #30 caps 06/01/25 07/27/25 Unknown Rx release Allergies Allergy/AdvReac Type Severity Reaction Status Date / Time Penicillins Allergy Unknown Verified 08/01/25 19:18 Current Medications Generic Name Dose Route Start Last Admin Trade Name Freq PRN Reason Stop Dose Admin Dextrose/Lactated Ringer's 1,000 mls @ 125 mls/hr 08/01/25 19:15 08/01/25 20:30 Dextrose 5%-Lactated Ringers IV 125 mls/hr .Q8H MARIELENA Administration Oxytocin 30 unit in 500 mls @ 1 mls/hr 08/01/25 20:15 08/01/25 22:46 Pitocin IV 10 milliunit/min .Q24H MARIELENA 10 mls/hr Protocol Titration 1 MILLIUNIT/MIN Sodium Chloride 1,000 mls @ 999 mls/hr 08/01/25 21:28 08/01/25 22:47 Sodium Chloride 0.9% IV 999 mls/hr .Q1H1M PRN Administration See label comments PFSH Anesthesia Medical History Seizure disorder Dysuria Family History Denies family history of Colon cancer Pancreatic cancer Ovarian cancer Thyroid cancer Diabetes Breast cancer Cancer Hypertension Uterine cancer Stroke Social History Smoking and tobacco/nicotine status: never used tobacco/nicotine Female Reproductive History : 2 Data Anesthesia 08/01/25 19:30 Short CBC 08/01/25 Range/Units 19:30 WBC 12.31 H (3.29-11.43) 10^3/uL Hgb 12.20 (11.27-16.99) g/dL Hct 35.4 L (36-47) % MCV 88.7 (85-98) fl Plt Count 178 (157-399) 10^3/cmm Neut % (Auto) 68.5 % Neut # (Auto) 8.42 H (1.8-7.7) 10^3/uL Blood Bank 08/01/25 19:30 Blood Type AB Positive Rho(D) Type Rh positive Antibody Screen Negative
--- NOTE | 2025-08-02 00:10 | ANES.PROC ---
Anesthesia Procedures Procedure/Date: 08/02/25 Epidural: Time Out Performed: Yes Consents Signed: Procedure Consent Consent: requested by attending/covering physician, from patient, risks and benefits reviewed and patient agrees to proceed Lumbar Level: L2-L3 Epidural position: sitting Epidural procedure: sterile prep of area, 1% lidocaine to numb the area, 18 g needle, neg for paresthesia, test dose given, 1.5% xylocaine 1:200k epi, 0.2% Ropivacaine bolus ml (4cc and Fentanyl 100 mcg), no systemic response, sterile dressing applied, L.U.D. no apparent complications and 0.2% Ropiavacaine @ mls/hr (13cc/hour) Additional Comments: Pt tolerated well
[2025-08-02] MEDS: ROPivacaine premix 200 MG/100 ML PREMIX 12 MG EPIDURAL (00:17)
--- NOTE | 2025-08-02 06:45 | P.PCNOB_ITS ---
Delivery Note: Date of delivery: August 02, 2025 Pre-delivery diagnoses: 39 w 2 d induction of labor Post-delivery diagnoses: 39 w 2 d induction of labor vaginal delivery repair of second-degree perineal laceration Procedure: induction of labor vaginal delivery repair of second-degree perineal laceration Op report anesthesia: Epidural Delivering Physician: Ulises Johnson MD Estimated blood loss (mL): 300 Findings: , vigorous Cord gases and blood obtained Normal placenta and cord No episiotomy Second-degree perineal laceration repaired EBL: 300 cc No complications Pre-Delivery Course: normal labor course fetus reassurring throughout Delivery: vaginal Post-Delivery Status: good History History History 2 Term 1 0 Miscarriages/Ectopic 0 Living Children 1 Past Pregnancies Del. Date GA/Weeks Outcome Route Wt Inf Gender Labor Lgth Comp. Anesth esia Location 06/21/23 41 live - full term Vaginal 8 lb 4 oz Female [facility] Delivery Date: 06/21/23 Last Updated by: Brittny Blackman, MIGUEL Johnson A&P Assessment and plan 1. Vaginal delivery: PDMP PDMP Reviewed: Not Reviewed Coding Level of Care Code Acute Code for Chg Fwd Diagnoses Vaginal delivery O80
[2025-08-02] MEDS: HYDROcodone-acetaminophen 5-325 mg Tablet PO (14:52)
[2025-08-02 19:06] LABS: Hematocrit 33.0 % (36-47); Hemoglobin 11.20 g/dL (11.27-16.99); Mean Corpuscular HGB Conc 33.9 g/dL (30-55); Mean Corpuscular Hemoglobin 30.6 pg (27-33); Mean Corpuscular Volume 90.2 fl (85-98); Platelet Count 167 10^3/cmm (157-399); Red Blood Count 3.66 10^6/uL (3.85-5.65); White Blood Count 17.75 10^3/uL (3.29-11.43)
[2025-08-03 04:37] VITALS: BP 103/64; PULSE 85; RESP 16; TEMP 36.8; O2SAT 97
--- NOTE | 2025-08-03 06:59 | P.DS_ITS ---
Discharge Providers Date of Admission: 08/01/25 19:08 Date of Discharge: August 03, 2025 Attending Provider at Admission: Ulises Johnson MD Attending Provider at Discharge: Gildardo Brown MD Primary Care Provider: Cheng Uribe Diagnoses at Discharge Other Information Additional DC diagnoses/information: 1. Intrauterine status post spontaneous vaginal delivery at 39.2 weeks gestation 2. Delivery of healthy infant male Reason for Visit Reason for Visit: elective induction Brief History: Tosin is a 29-year-old G2 now P2 status post spontaneous vaginal delivery at 39.2 weeks gestation by LMP consistent with 8-week ultrasound. She was brought in for a scheduled induction of labor. The patient was admitted and delivered by Dr. Johnson. The patient had an unremarkable spontaneous vaginal delivery. Please see Dr. Johnson's notes for full details. Hospital Course Hospital Course The patient is done well . She is ambulating, voiding, passing gas and tolerating food by mouth. Her bleeding is decreasing well. Her pain is well-controlled. Routine discharge instructions were discussed with the patient. All questions were answered. We will discharge patient home today and she will plan to follow-up with CONSULTATIVE SALES ASSOCIATE in the next 6 weeks or sooner if needed. The patient and her significant other are in agreement with the current plan of care. Physical Exam Narrative: General: Alert and oriented x3 Cardiac: Regular rate and rhythm without murmurs Lungs: Clear to auscultation bilaterally without wheezes, crackles or rhonchi Abdomen: Soft, mild tenderness over uterus. The uterus is firm and 2 cm below the umbilicus. Extremities: Trace edema in the bilateral lower extremities Urinary Catheter Management: Bustillos Latex: Cath Placed During This Visit: yes Reason for Continuing Indwelling Catheter: Required Immobilization for Trauma or Surgery or Anesthesia Urinary Catheter Date of Insertion: 08/02/25 Urinary Catheter Time of Insertion: 00:45 Discharge Data Studies Completed and Pending Laboratory Results WBC 17.75 10^3/uL (3.29-11.43) H 08/02/25 18:45 RBC 3.66 10^6/uL (3.85-5.65) L 08/02/25 18:45 Hgb 11.20 g/dL (11.27-16.99) L 08/02/25 18:45 Hct 33.0 % (36-47) L 08/02/25 18:45 MCV 90.2 fl (85-98) 08/02/25 18:45 MCH 30.6 pg (27-33) 08/02/25 18:45 MCHC 33.9 g/dL (30-55) 08/02/25 18:45 RDW 13.4 % (12.1-15.1) 08/02/25 18:45 Plt Count 167 10^3/cmm (157-399) 08/02/25 18:45 MPV 11.0 fL (7.4-10.4) H 08/02/25 18:45 Neut % (Auto) 68.5 % 08/01/25 19:30 Lymph % (Auto) 22.1 % 08/01/25 19:30 [place] % (Auto) 6.5 % 08/01/25 19:30 Eos % (Auto) 1.1 % 08/01/25 19:30 Baso % (Auto) 0.3 % 08/01/25 19:30 Neut # (Auto) 8.42 10^3/uL (1.8-7.7) H 08/01/25 19:30 Lymph # (Auto) 2.7 10^3/uL (0.8-4.8) 08/01/25 19:30 [place] # (Auto) 0.8 10^3/uL (0.2-0.9) 08/01/25 19:30 Eos # (Auto) 0.1 10^3/uL (0.0-0.8) 08/01/25 19:30 Baso # (Auto) 0.0 10^3/uL (0.0-0.1) 08/01/25 19:30 Nucleated RBC % (auto) 0 % 08/01/25 19:30 Nucleated RBCs # 0.0 /100WBC 08/01/25 19:30 Blood Type AB Positive 08/01/25 19:30 Rho(D) Type Rh positive 08/01/25 19:30 Antibody Screen Negative 08/01/25 19:30 Vitals Last Vital Signs Temp 98.3 F 08/03/25 04:37 Pulse 85 08/03/25 04:37 Resp 16 08/03/25 04:37 BP 103/64 08/03/25 04:37 Pulse Ox 97 08/03/25 04:37 O2 Del Method Room Air 08/03/25 04:37 Discharge Plan Discharge Patient Disposition: Home Condition: Good Prescriptions: New ibuprofen 800 mg Tablet 800 mg PO TID Qty: 60 0RF hydrocodone-acetaminophen 5-325 mg Tablet 1 tab PO Q6H PRN (Reason: Moderate To Severe Pain) Qty: 15 0RF Continued levetiracetam 500 mg tablet extended release 24 hr 2,000 mg PO DAILY DHA 200 mg capsule 1 mg PO DAILY omeprazole 40 mg capsule,delayed release(DR/EC) 40 mg PO DAILY Qty: 30 3RF Discontinued folic acid 1 mg tablet 1 mg PO DAILY Discharge Order = DC NOW: Discharge Order (Routine); Ordered 08/03/25 Ordered By: Gildardo Brown Referrals: Brittny Blackman NP [Nurse Practitioner, [employer] [employer] [facility]] - 09/15/25 8:45 am Discharge Diet: Regular Discharge Activity: Increase activity as tolerated Patient Instructions: Depression (DC), Opioid Safety (DC), Preeclampsia and Eclampsia After Delivery (GEN), Hemorrhage (DC), OB Discharge Report, OB Food/Drug Interaction Guide, Opioid Safety, OB Home Care, OB Vaginal Deliveries - [facility], Patient Portal & Jose Daniel Instructions, Abnormal Bleeding Activity Restrictions/Additional Instructions: Nothing per vagina for 6 weeks. Showers are recommended instead of baths for the first 6 weeks. If you have any concerns for heavy bleeding, please seek immediate medical attention. Discharge Attestations Time Spent in Discharge Care*: less than 30 min Quality Metrics Clinical Quality Measures [ No reported AMI, CVA or VTE this stay] Coding Level of Care Code Acute Code for Chg Fwbeth
[2025-08-03 10:30] VITALS: BP 126/94; PULSE 85; RESP 16; TEMP 36.8; O2SAT 98
[2025-08-03] MEDS: measles,mumps,rubella pf Vial (w/diluent) 0.5 ML SUBCUT (10:49)
[2025-08-03 11:00] VITALS: BP 126/94; PULSE 85; RESP 16; TEMP 36.8; O2SAT 98
== END 2025-08-03 11:05 | disposition home or self-care (01) | DRG 560 ==
PROVIDERS: Admitting Provider Obstetrics & Gynecology; Visit Provider Obstetrics & Gynecology
DX: O99.354 Diseases of the nervous system complicating childbirth (principal); G40.909 Epilepsy, unspecified, not intractable, without status epilepticus; O70.1 Second degree perineal laceration during delivery; Z3A.39 39 weeks gestation of pregnancy; Z37.0 Single live birth; Z88.0 Allergy status to penicillin
CPT/HCPCS: 36415; 51702; 59025; 59409; 85025; 85027; 86850; 86900; 90707; 96372; 99211; J2590; J2795; J3010; J7030; J7121; J9999